=== PATIENT | female | born 1985 | race Hispanic/Latino ===

== ENCOUNTER 2025-05-12 08:11 | Day surgery (SDC) | payer OTHER, MEDICARE ==
[2025-05-12] VITALS (11 sets, daily range): BP systolic 135–166; BP diastolic 83–93; PULSE 52–65; RESP 15–18; TEMP 97.2–97.8
[~2025-05-12] VITALS: Ht 157.5 cm; Wt 108.9 kg
[2025-05-12] MEDS ORDERED: LEVO200C3 PO (09:18)
[2025-05-12] MEDS ORDERED: ATOR10 PO (09:18)
[2025-05-12] MEDS ORDERED: LISI5TAB21 PO (09:18)
[2025-05-12] MEDS ORDERED: proPOFol 10 MG/ML 20ML VIAL IV ONE ×2 (09:27)
[2025-05-12] MEDS: 0.9%NACL 1000ML 1,000 ML IV ONE (09:28)
== END 2025-05-12 10:45 | disposition home or self-care (01) ==
LOC: DAH 08:11 → ENDO 08:11
PROVIDERS: ATTEND Internal Medicine Gastroenterology
DX: R12 Heartburn (principal); K31.89 Other diseases of stomach and duodenum; K22.89 Other specified disease of esophagus; K29.50 Unspecified chronic gastritis without bleeding; E11.9 Type 2 diabetes mellitus without complications; I16.0 Hypertensive urgency; K91.1 Postgastric surgery syndromes; L41.4 Large plaque parapsoriasis; E03.9 Hypothyroidism, unspecified; Z98.84 Bariatric surgery status; Z68.41 Body mass index [BMI] 40.0-44.9, adult
CPT/HCPCS: 82948; 81025; 43239; J7030 ×2; J2704 ×2; A4620; A4215; A4223; A7002; A4222; A4221; A4663; A4606; J3490